=== PATIENT | female | born 1975 | race Caucasian/White ===

== ENCOUNTER 2021-05-30 00:56 | Emergency (ER) | payer MEDICAID ==
[~2021-05-30] VITALS: Ht 160 cm; Wt 63.0 kg
[2021-05-30] MEDS ORDERED: KETOROLAC 15MG/ML VIAL IV ONE (01:45)
[2021-05-30] MEDS ORDERED: SODIUM CHLORIDE 0.9% 1,000 ML IV ONE (01:45)
[2021-05-30] MEDS ORDERED: ONDANSETRON HCL 4MG/2ML INJ IV ONE (02:30)
[2021-05-30] MEDS ORDERED: MORPHINE SULFATE 2 MG/ML CPJ (NOT FOR IM USE) IV ONE (02:30)
[2021-05-30 03:11] LABS: HEMATOCRIT. 35.3 % (36.0-48.0); HEMOGLOBIN. 11.8 g/dL (12.0-16.0); MEAN CORPUSCULAR HEMOGLOBIN 29.3 pg (28.0-32.0); MEAN CORPUSCULAR VOLUME 87.5 fL (81.0-99.0); MEAN PLATELET VOLUME 8.6 fl (7.4-10.4); PLATELET 236 x1000/uL (130-400); RED BLOOD CELL COUNT 4.04 mill/uL (4.2-5.4); RED CELL DISTRIBUTION WIDTH 13.2 % (11.6-14.6)
[2021-05-30 03:17] LABS: CHLORIDE 103 mEq/L (98-107)
[2021-05-30 03:21] LABS: CLARITY URINE CLOUDY (CLEAR); COLOR URINE YELLOW (YELLOW); KETONES URINE TRACE (NEGATIVE); LEUKOCYTE ESTERASE URINE 3+ (NEGATIVE); NITRITE URINE POSITIVE (NEGATIVE); OCCULT BLOOD URINE 2+ (NEGATIVE); PROTEIN URINE 1+ (NEGATIVE); SPECIFIC GRAVITY URINE 1.014 (1.005-1.030); UROBILINOGEN URINE 0.2 E.U./dL (0.2-1.0)
[2021-05-30 03:40] LABS: HCG SCREEN NEGATIVE
[2021-05-30] MEDS ORDERED: CEFTRIAXONE 1 G PREMIX 50 ML IV ONE (03:45)
[2021-05-30 04:16] LABS: PLATELET ESTIMATE NORMAL
[2021-05-30] MEDS ORDERED: CIPR500T5 MT (06:36)
[2021-05-30 06:58] VITALS: BP 129/73
[2021-05-30] MEDS ORDERED: IOHEXOL-300 100 ML BOTTLE ONE (07:01)
== END 2021-05-30 06:59 | disposition home or self-care (01) ==
LOC: ER 00:56
DX: N12 Tubulo-interstitial nephritis, not specified as acute or chronic (principal); Z87.440 Personal history of urinary (tract) infections
CPT/HCPCS: 36415; 74177; 80053; 81003; 83690; 84703; 85025; 87077; 87086; 87186; 96361; 96365; 96375; 99285; J0696; J1885; J2270; J2405; J7030; Q9967